=== PATIENT | male | born 1960 | race Caucasian/White ===

== ENCOUNTER 2017-04-29 17:46 | Inpatient (IN) | payer OTHER ==
[2017-04-29] MEDS ORDERED: Pantoprazole 40 MG Vial IVPUSH ONE (18:12)
[2017-04-29] MEDS ORDERED: Sodium Chloride 0.9% 1,000 ML IV SCH (18:15)
[2017-04-29] MEDS ORDERED: Sodium Chloride 0.9% 10 ML Syringe FLUSH PRN (18:18)
--- NOTE | 2017-04-29 18:23 | EDM.PDOC ---
ED HPI GENERAL MEDICAL PROBLEM - General Chief Complaint: Gastrointestinal Problem Stated Complaint: [facility] Time Seen by Provider: 04/29/17 17:58 Source of Information: Reports: Patient, Family, RN Notes Reviewed History Limitations: Reports: No Limitations - History of Present Illness INITIAL COMMENTS - FREE TEXT/NARRATIVE: 56-year-old gentleman presents emergency department day complaint of bright red blood per rectum, he states he never had this before event started today he's had 3 bouts with increasing severity of large amounts of bright red blood per rectum, he has felt lightheaded and dizzy does have a history of diverticular disease with diverticulitis, does have a history of prostate cancer with abdominal surgery robotic prostatectomy also history of diabetes mellitus type 2 denies Pain Score (Numeric/FACES): 0 - Related Data Allergies Allergy/AdvReac Type Severity Reaction Status Date / Time bacitracin Allergy Rash Verified 04/29/17 17:50 [From Neosporin ([id number])] neomycin Allergy Rash Verified 04/29/17 17:50 [From Neosporin ([id number])] polymyxin B Allergy Rash Verified 04/29/17 17:50 [From Neosporin ([id number])] Home Meds: Home Meds Albuterol Sulfate [Proair Respiclick] 90 mcg IH ASDIRECTED 04/29/17 [History] Aspirin 325 mg PO DAILY 04/29/17 [History] Citalopram [Celexa] 20 mg PO DAILY 04/29/17 [History] Colesevelam [Welchol] 3 tab PO DAILY 04/29/17 [History] Cyclobenzaprine [Flexeril] 10 mg PO TID PRN 04/29/17 [History] Fish Oil/[place]-3 Fatty Acids [Fish Oil] 1 tab PO DAILY 04/29/17 [History] Fluticasone Propionate [Flonase] 16 gm NS ASDIRECTED PRN 04/29/17 [History] Hydrochlorothiazide 50 mg PO DAILY 04/29/17 [History] Insulin Glarg,Human.Rec.Analog [LantUS Solostar] 50 unit SUBCUT DAILY 04/29/17 [ History] Liraglutide [Victoza] 1.8 mg SUBCUT DAILY 04/29/17 [History] Losartan [Cozaar] 100 mg PO DAILY 04/29/17 [History] Sildenafil Citrate [Sildenafil] 100 mg PO ASDIRECTED PRN 04/29/17 [History] Simvastatin [Zocor] 40 mg PO BEDTIME 04/29/17 [History] Zolpidem Tartrate [Ambien] 5 mg PO DAILY 04/29/17 [History] metFORMIN [Glucophage] 1,000 mg PO BIDMEALS 04/29/17 [History] Past Medical History Cardiovascular History: Reports: High Cholesterol Respiratory History: Reports: Asthma Musculoskeletal History: Reports: Back Pain, Chronic, Osteoarthritis Psychiatric History: Reports: Anxiety Endocrine/Metabolic History: Reports: Diabetes, Type II Oncologic (Cancer) History: Reports: Prostate - Past Surgical History Male Surgical History: Reports: Prostatectomy Social & Family History - Tobacco Use Smoking Status *Q: Never Smoker Second Hand Smoke Exposure: No - Recreational Drug Use Recreational Drug Use: No ED ROS GENERAL - Review of Systems Review Of Systems: See Below Constitutional: Reports: Weakness. Denies: Fever, Chills HEENT: Reports: No Symptoms Respiratory: Reports: No Symptoms Cardiovascular: Reports: No Symptoms GI/Abdominal: Reports: Bloody Stool. Denies: Abdominal Pain, Nausea, Vomiting : Reports: No Symptoms Musculoskeletal: Reports: No Symptoms Skin: Reports: No Symptoms Neurological: Reports: No Symptoms ED EXAM, GI/ABD - Physical Exam Exam: See Below Text/Narrative:: General: Male, not in any distress, alert and oriented x3 HEENT: head is atraumatic normocephalic, eyes pupils equal round reactive to light, sclera clear no conjunctivitis appreciated. Ears tympanic membranes clear and musa landmarks and light reflex are present bilaterally canals are clear. Nose no septal deviation, nares are clear, no blood present. Mouth mucosa is moist and pink no erythema or exudate noted in soft palate, tongue is midline uvula is midline, dentition is intact. Neck: Supple no thyromegaly no tracheal deviation. Nodes: Cervical nodes subclavicular nodes nontender no palpable lymphadenopathy noted. Lungs: clear to auscultation bilaterally with symmetrical respirations, no adventitious noise appreciated. CV: Regular rate and rhythm S1 and S2 appreciated no murmurs rubs or gallops noted. Abdomen: Soft, nontender, no palpable masses or organomegaly appreciated, no distention no guarding bowel sounds are present, , rectal exam reveals bright red blood per rectum. Neuro: Cranial nerves II through XII grossly intact Skin: Warm and dry, intact Extremities: No lower extremity edema appreciated, pedal pulse is +2. Course - Vital Signs Last Recorded V/S: Last Vital Signs Temp 98.8 F 04/29/17 17:50 Pulse 81 04/29/17 19:20 Resp 16 04/29/17 19:20 BP 128/79 04/29/17 19:20 Pulse Ox 95 04/29/17 19:20 - Orders/Labs/Meds Orders: Active Orders 24 hr Category Date Time Status EKG Documentation Completion [RC] ASDIRECTED Care 04/29/17 18:21 Active Peripheral IV Care [RC] . DIRECTED Care 04/29/17 18:13 Active Peripheral IV Care [RC] . DIRECTED Care 04/29/17 18:18 Active INR,PT,PROTHROMBIN TIME [COAG] Urgent Lab 04/29/17 18:12 Ordered RED BLOOD CELLS LP [BBK] Routine Lab 04/29/17 19:03 Received TYPE AND SCREEN [BBK] Routine Lab 04/29/17 19:03 Received Insulin Aspart [NovoLOG] Med 04/29/17 19:50 Stat 10 unit SUBCUT NOW STA Sodium Chloride 0.9% [Normal Saline] 1,000 ml Med 04/29/17 18:15 Active IV .BOLUS Sodium Chloride 0.9% [Saline Flush] Med 04/29/17 18:12 Active 10 ml FLUSH ASDIRECTED PRN Sodium Chloride 0.9% [Saline Flush] Med 04/29/17 18:18 Active 10 ml FLUSH ASDIRECTED PRN Peripheral IV Insertion Adult [OM.PC] Urgent Oth 04/29/17 18:12 Ordered Peripheral IV Insertion Adult [OM.PC] Urgent Oth 04/29/17 18:18 Ordered Transfuse Red Blood Cells [COMM] Stat Oth 04/29/17 18:14 Ordered EKG 12 Lead [EK] Routine Ther 04/29/17 18:20 Ordered Medication Orders Sodium Chloride (Normal Saline) 1,000 mls @ 1,000 mls/hr IV .BOLUS BRYANT Last Admin: 04/29/17 18:46 Dose: 1,000 mls/hr Insulin Aspart (Novolog) 10 unit SUBCUT NOW STA Stop: 04/29/17 19:51 Sodium Chloride (Saline Flush) 10 ml FLUSH ASDIRECTED PRN PRN Reason: Keep Vein Open Last Admin: 04/29/17 18:46 Dose: 10 ml Admin: 04/29/17 18:45 Dose: 10 ml Sodium Chloride (Saline Flush) 10 ml FLUSH ASDIRECTED PRN PRN Reason: Keep Vein Open Last Admin: 04/29/17 19:21 Dose: 10 ml Labs: Laboratory Tests 04/29/17 04/29/17 04/29/17 Range/Units 18:12 18:12 18:20 WBC 10.0 (4.5-11.0) K/uL RBC 3.57 L (4.30-5.90) M/uL Hgb 11.4 L (12.0-15.0) g/dL Hct 33.3 L (40.0-54.0) % MCV 93 (80-98) fL MCH 32 H (27-31) pg MCHC 34 (32-36) % Plt Count 197 (150-400) K/uL Neut % (Auto) 69 H (36-66) % Lymph % (Auto) 20 L (24-44) % [place]oup % (Auto) 9 H (2-6) % Eos % (Auto) 2 (2-4) % Baso % (Auto) 1 (0-1) % Sodium 135 L (140-148) mmol/L Potassium 4.1 (3.6-5.2) mmol/L Chloride 100 (100-108) mmol/L Carbon Dioxide 25 (21-32) mmol/L Anion Gap 14.1 H (5.0-14.0) mmol/L BUN 22 H (7-18) mg/dL Creatinine 1.0 (0.8-1.3) mg/dL Est Cr Clr Drug Dosing 76.21 mL/min Estimated GFR (MDRD) > 60 (>60) Glucose 357 H (74-106) mg/dL Lactic Acid 2.4 H (0.4-2.0) mmol/L Calcium 8.1 L (8.5-10.1) mg/dL Total Bilirubin 0.4 (0.2-1.0) mg/dL AST 19 (15-37) U/L ALT 33 (12-78) U/L Alkaline Phosphatase 72 (46-116) U/L Total Protein 6.8 (6.4-8.2) g/dL Albumin 3.1 L (3.4-5.0) g/dL Globulin 3.7 H (2.3-3.5) g/dL Albumin/Globulin Ratio 0.8 L (1.2-2.2) Meds: Medications Generic Name Dose Route Start Last Admin Trade Name Gersonq PRN Reason Stop Dose Admin Sodium Chloride 1,000 mls @ 1,000 mls/hr 04/29/17 18:15 04/29/17 18:46 Normal Saline IV 1,000 mls/hr .BOLUS BRYANT Administration Insulin Aspart 10 unit 04/29/17 19:50 Novolog SUBCUT 04/29/17 19:51 NOW STA Sodium Chloride 10 ml 04/29/17 18:12 04/29/17 18:46 Saline Flush FLUSH 10 ml ASDIRECTED PRN Administration Keep Vein Open Sodium Chloride 10 ml 04/29/17 18:18 04/29/17 19:21 Saline Flush FLUSH 10 ml ASDIRECTED PRN Administration Keep Vein Open Discontinued Medications Generic Name Dose Route Start Last Admin Trade Name Gersonq PRN Reason Stop Dose Admin Pantoprazole Sodium 40 mg 04/29/17 18:12 04/29/17 18:45 Protonix Iv IVPUSH 04/29/17 18:13 40 mg ONETIME ONE Administration Departure - Departure Time of Disposition: 19:52 Disposition: Admitted As Inpatient 68 Condition: Good Clinical Impression: GI bleed Qualifiers: GI bleed type/associated pathology: unspecified gastrointestinal hemorrhage type Qualified Code(s): K92.2 - Gastrointestinal hemorrhage, unspecified - Discharge Information Referrals: PCP,None [Primary Care Provider] - Forms: ED Department Discharge - My Orders Last 24 Hours: My Active Orders 04/29/17 18:12 INR,PT,PROTHROMBIN TIME [COAG] Urgent Sodium Chloride 0.9% [Saline Flush] 10 ml FLUSH ASDIRECTED PRN Peripheral IV Insertion Adult [OM.PC] Urgent 04/29/17 18:13 Peripheral IV Care [RC] . DIRECTED 04/29/17 18:14 Transfuse Red Blood Cells [COMM] Stat 04/29/17 18:15 Sodium Chloride 0.9% [Normal Saline] 1,000 ml IV .BOLUS 04/29/17 18:18 Peripheral IV Care [RC] . DIRECTED Sodium Chloride 0.9% [Saline Flush] 10 ml FLUSH ASDIRECTED PRN Peripheral IV Insertion Adult [OM.PC] Urgent 04/29/17 18:20 EKG 12 Lead [EK] Routine 04/29/17 18:21 EKG Documentation Completion [RC] ASDIRECTED 04/29/17 19:03 RED BLOOD CELLS LP [BBK] Routine TYPE AND SCREEN [BBK] Routine 04/29/17 19:50 Insulin Aspart [NovoLOG] 10 unit SUBCUT NOW STA - Assessment/Plan Last 24 Hours: My Active Orders 04/29/17 18:12 INR,PT,PROTHROMBIN TIME [COAG] Urgent Sodium Chloride 0.9% [Saline Flush] 10 ml FLUSH ASDIRECTED PRN Peripheral IV Insertion Adult [OM.PC] Urgent 04/29/17 18:13 Peripheral IV Care [RC] . DIRECTED 04/29/17 18:14 Transfuse Red Blood Cells [COMM] Stat 04/29/17 18:15 Sodium Chloride 0.9% [Normal Saline] 1,000 ml IV .BOLUS 04/29/17 18:18 Peripheral IV Care [RC] . DIRECTED Sodium Chloride 0.9% [Saline Flush] 10 ml FLUSH ASDIRECTED PRN Peripheral IV Insertion Adult [OM.PC] Urgent 04/29/17 18:20 EKG 12 Lead [EK] Routine 04/29/17 18:21 EKG Documentation Completion [RC] ASDIRECTED 04/29/17 19:03 RED BLOOD CELLS LP [BBK] Routine TYPE AND SCREEN [BBK] Routine 04/29/17 19:50 Insulin Aspart [NovoLOG] 10 unit SUBCUT NOW STA Plan: Assessment Acuity = acute Site and laterality = lower gastrointestinal bleeding complicated patient with known history of diabetes mellitus type 2, dyslipidemia history of prostate cancer Etiology = unclear etiology Manifestations = lightheadedness Location of injury = Home Lab values = hemoglobin low 11.4 consistent normochromic anemia sodium low at 135 consists a hyponatremia glucose elevated 357 consistent hyperglycemia lactic acid elevated at 2.4 consistent lactic acidosis albumin low at 3.1 consistent hypoalbuminemia Plan Discussed case with hospitalist on-call they agreed to come and evaluate the patient emergency department for admission, 40 mg Protonix IV has been provided 2 units of blood are on hold Patient was in agreement with the plan all questions were answered, This note was dictated using YesVideo voice recognition software please call with any questions.
[2017-04-29] MEDS: Sodium Chloride 0.9% 10 ML Syringe FLUSH PRN ×2 (18:45→18:46)
[2017-04-29] MEDS ORDERED: Acetaminophen 325 MG Tab PO PRN (21:22)
[2017-04-29] MEDS ORDERED: LORazepam 2 MG/ML MDV IV PRN (21:22)
[2017-04-29] MEDS ORDERED: oxyCODONE 5 MG Tab PO PRN (21:22)
[2017-04-29] MEDS ORDERED: Cyclobenzaprine 10 MG Tab PO PRN (21:22)
[2017-04-29] MEDS ORDERED: Ondansetron 4 MG/2 ML SDV IV PRN (21:22)
[2017-04-29] MEDS ORDERED: Ondansetron 4 MG Tab.DIS PO PRN (21:22)
[2017-04-29] MEDS ORDERED: Morphine 2 MG/ML Syringe IVPUSH PRN (21:22)
[2017-04-29] MEDS ORDERED: Albuterol 0.083% 2.5 MG/3 ML Neb Soln NEB PRN (21:22)
[2017-04-29] MEDS ORDERED: Zolpidem 5 MG Tab PO SCH (21:22)
--- NOTE | 2017-04-29 21:25 | PCM.HP ---
H&P History of Present Illness - General Date of Service: 04/29/17 Admit Problem/Dx: Admission Diagnosis/Problem Admission Diagnosis/Problem Gastrointestinal hemorrhage Source of Information: Patient, Provider, RN History Limitations: Reports: No Limitations - History of Present Illness Initial Comments - Free Text/Narative: - History of Present Illness: 56-year-old gentleman presents emergency department day complaint of bright red blood per rectum, he states he never had this before event started today he's had 3 bouts with increasing severity of large amounts of bright red blood per rectum, he has felt lightheaded and dizzy does have a history of diverticular disease with diverticulitis, does have a history of prostate cancer with abdominal surgery robotic prostatectomy also history of diabetes mellitus type 2 Onset of Symptoms: Reports: Sudden Duration of Symptoms: Reports: Hour(s): Location: Reports: Other (rectal bleed) Quality: Reports: Other Severity: Severe Improves with: Reports: None Worsens with: Reports: None Associated Symptoms: Reports: Fever/Chills (feeling chilled), Other (dizziness) denies Pain Score (Numeric/FACES): 0 - Related Data Allergies/Adverse Reactions: Allergies Allergy/AdvReac Type Severity Reaction Status Date / Time bacitracin Allergy Rash Verified 04/29/17 17:50 [From Neosporin ([id number])] neomycin Allergy Rash Verified 04/29/17 17:50 [From Neosporin ([id number])] polymyxin B Allergy Rash Verified 04/29/17 17:50 [From Neosporin ([id number])] Home Medications: Home Meds Albuterol Sulfate [Proair Respiclick] 90 mcg IH ASDIRECTED 04/29/17 [History] Aspirin 325 mg PO DAILY 04/29/17 [History] Citalopram [Celexa] 20 mg PO DAILY 04/29/17 [History] Colesevelam [Welchol] 3 tab PO DAILY 04/29/17 [History] Cyclobenzaprine [Flexeril] 10 mg PO TID PRN 04/29/17 [History] Fish Oil/[place]-3 Fatty Acids [Fish Oil] 1 tab PO DAILY 04/29/17 [History] Fluticasone Propionate [Flonase] 16 gm NS ASDIRECTED PRN 04/29/17 [History] Hydrochlorothiazide 50 mg PO DAILY 04/29/17 [History] Insulin Glarg,Human.Rec.Analog [LantUS Solostar] 50 unit SUBCUT DAILY 04/29/17 [ History] Liraglutide [Victoza] 1.8 mg SUBCUT DAILY 04/29/17 [History] Losartan [Cozaar] 100 mg PO DAILY 04/29/17 [History] Sildenafil Citrate [Sildenafil] 100 mg PO ASDIRECTED PRN 04/29/17 [History] Simvastatin [Zocor] 40 mg PO BEDTIME 04/29/17 [History] Zolpidem Tartrate [Ambien] 5 mg PO DAILY 04/29/17 [History] metFORMIN [Glucophage] 1,000 mg PO BIDMEALS 04/29/17 [History] Past Medical History Cardiovascular History: Reports: High Cholesterol Respiratory History: Reports: Asthma Musculoskeletal History: Reports: Back Pain, Chronic, Osteoarthritis Psychiatric History: Reports: Anxiety Endocrine/Metabolic History: Reports: Diabetes, Type II Oncologic (Cancer) History: Reports: Prostate - Past Surgical History Male Surgical History: Reports: Prostatectomy Social & Family History - Tobacco Use Smoking Status *Q: Never Smoker Second Hand Smoke Exposure: No - Recreational Drug Use Recreational Drug Use: No - Living Situation & Occupation Living situation: Reports: Occupation: Employed (lives with in [place], [place].) H&P Review of Systems - Review of Systems: Review Of Systems: See Below General: Reports: Chills, Other (dizziness) HEENT: Reports: No Symptoms Pulmonary: Reports: No Symptoms Cardiovascular: Reports: Lightheadedness Gastrointestinal: Reports: Bloody Stool Genitourinary: Reports: No Symptoms Musculoskeletal: Reports: No Symptoms Skin: Reports: No Symptoms Psychiatric: Reports: No Symptoms Neurological: Reports: No Symptoms Hematologic/Lymphatic: Reports: No Symptoms Exam - Exam Exam: See Below - Vital Signs Vital Signs: Last Vital Signs Temp 37.1 C 04/29/17 17:50 Pulse 81 04/29/17 19:20 Resp 16 04/29/17 19:20 BP 128/79 04/29/17 19:20 Pulse Ox 95 04/29/17 19:20 Weight: 113.398 kg - Exam General: Alert, Oriented HEENT: PERRLA, Hearing Intact, Mucosa Moist & [place], Nares Patent, Normal Nasal Septum, Posterior Pharynx Clear, Conjunctiva Clear, EOMI, EACs Clear, TMs Clear Neck: Supple, Trachea Midline, 2 Lungs: Clear to Auscultation, Normal Respiratory Effort Cardiovascular: Regular Rate, Regular Rhythm, Normal S1, Normal S2 GI/Abdominal Exam: Normal Bowel Sounds, Soft, Non-Tender, No Organomegaly, No Distention, No Abnormal Bruit, No Mass, Pelvis Stable (Male) Exam: Deferred Rectal (Males) Exam: Deferred Back Exam: Normal Inspection, Full Range of Motion, NT Extremities: Normal Inspection, Normal Range of Motion, Non-Tender, No Pedal Edema, Normal Capillary Refill Peripheral Pulses: 2+: Radial (L), Radial (R) Skin: Warm, Dry, Intact Neurological: Cranial Nerves Intact, Reflexes Equal Bilateral Neuro Extensive - Mental Status: Alert, Oriented x3, Normal Mood/Affect, Normal Cognition Neuro Extensive - Motor, Sensory, Reflexes: Normal Reflexes Psychiatric: Alert, Normal Affect, Normal Mood Physical Exam Comments:: Per ER MD exam; Abdomen: rectal exam reveals bright red blood per rectum. - Patient Data Result Diagrams: 04/30/17 01:01 04/29/17 18:12 *Q Meaningful Use (ADM) - VTE *Q VTE Criteria *Q: - Stroke *Q Stroke Criteria *Q: - AMI *Q AMI Criteria *Q: - Problem List (1) Diabetes type 2, controlled SNOMED Code(s): 14687381 ICD Code: E11.9 - TYPE 2 DIABETES MELLITUS WITHOUT COMPLICATIONS Status: Acute Priority: High Current Visit: Yes Qualifiers: Diabetes mellitus complication status: without complication Diabetes mellitus termite exterminator helper insulin use: without termite exterminator helper use Qualified Code(s): E11.9 - Type 2 diabetes mellitus without complications (2) Hypertension SNOMED Code(s): 22630138 ICD Code: I10 - ESSENTIAL (PRIMARY) HYPERTENSION Status: Acute Priority: High Current Visit: Yes Qualifiers: Hypertension type: essential hypertension Qualified Code(s): I10 - Essential (primary) hypertension (3) History of prostate cancer SNOMED Code(s): 697398747 ICD Code: Z85.46 - PERSONAL HISTORY OF MALIGNANT NEOPLASM OF PROSTATE Status: Acute Priority: Low Current Visit: Yes (4) History of prostatectomy SNOMED Code(s): 806707583, 42641083, 041789328 ICD Code: Z90.79 - ACQUIRED ABSENCE OF OTHER GENITAL ORGAN(S) Status: Acute Priority: Low Current Visit: Yes (5) GI bleed SNOMED Code(s): 27391816 ICD Code: K92.2 - GASTROINTESTINAL HEMORRHAGE, UNSPECIFIED Status: Acute Priority: High Current Visit: Yes Qualifiers: GI bleed type/associated pathology: unspecified gastrointestinal hemorrhage type Qualified Code(s): K92.2 - Gastrointestinal hemorrhage, unspecified Problem List Initiated/Reviewed/Updated: Yes Orders Last 24hrs: Active Orders 24 hr Category Date Time Status Patient Status [ADT] Routine ADT 04/29/17 21:22 Active Head of Bed Elevation [RC] ASDIRECTED Care 04/29/17 21:22 Active Intake and Output [RC] QSHIFT Care 04/29/17 21:22 Active Intake and Output [RC] QSHIFT Care 04/29/17 21:22 Active Notify Provider Consults [RC] ASDIRECTED Care 04/29/17 21:22 Active Notify Provider Vital Signs [RC] ASDIRECTED Care 04/29/17 21:22 Active Oxygen Therapy [RC] PRN Care 04/29/17 21:22 Active RT Aerosol Therapy [RC] ASDIRECTED Care 04/29/17 21:22 Active Up ad [place] [RC] ASDIRECTED Care 04/29/17 21:22 Active VTE/DVT Education [RC] Per Unit Routine Care 04/29/17 21:22 Active Vital Signs [RC] Q4H Care 04/29/17 21:22 Active Consult to Physician [CONS] Routine Cons 04/29/17 21:22 Ordered OT Evaluation and Treatment [CONS] Routine Cons 04/29/17 21:22 Active Nothing per Oral After Midnight Diet [DIET] Diet 04/29/17 Breakfast Active BASIC METABOLIC PANEL,BMP [CHEM] AM Lab 04/30/17 05:11 Ordered CBC WITH AUTO DIFF [HEME] AM Lab 04/30/17 05:11 Ordered GLUCOSE POC LAB TO COLLECT [POC] QIDACANDBED Lab 04/30/17 07:30 Ordered GLUCOSE POC LAB TO COLLECT [POC] QIDACANDBED Lab 04/30/17 11:30 Ordered GLUCOSE POC LAB TO COLLECT [POC] QIDACANDBED Lab 04/30/17 16:30 Ordered GLUCOSE POC LAB TO COLLECT [POC] QIDACANDBED Lab 04/30/17 21:00 Ordered Acetaminophen [Tylenol] Med 04/29/17 21:22 Active 650 mg PO Q4H PRN Albuterol [Proventil Neb Soln] Med 04/29/17 21:22 Active 2.5 mg NEB Q4H PRN Citalopram [Celexa] Med 04/30/17 09:00 Active 20 mg PO DAILY Cyclobenzaprine [Flexeril] Med 04/29/17 21:22 Active 10 mg PO TID PRN Hydrochlorothiazide [Hydrochlorothiazide] Med 04/30/17 09:00 Ordered 50 mg PO DAILY Insulin Aspart [NovoLOG] Med 04/30/17 07:00 Ordered See Protocol SUBCUT QIDACANDBED Insulin Glarg,Human.Rec.Analog [Lantus Solostar] Med 04/30/17 09:00 Ordered 50 unit SUBCUT DAILY LORazepam [Ativan] Med 04/29/17 21:22 Ordered 1 mg IV Q6H PRN Liraglutide [Victoza] Med 04/30/17 09:00 Ordered 1.8 mg SUBCUT DAILY Losartan [Cozaar] Med 04/30/17 09:00 Ordered 100 mg PO DAILY Morphine Med 04/29/17 21:22 Ordered 2 mg IVPUSH Q2H PRN Ondansetron [Zofran ODT] Med 04/29/17 21:22 Ordered 4 mg PO Q6H PRN Ondansetron [Zofran] Med 04/29/17 21:22 Ordered 4 mg IV Q4H PRN Pantoprazole [ProTONIX IV] Med 04/30/17 09:00 Ordered 40 mg IV DAILY Sodium Chloride 0.9% [Normal Saline] 1,000 ml Med 04/29/17 21:22 Ordered IV ASDIRECTED Zolpidem [Ambien] Med 04/29/17 21:22 Ordered 5 mg PO BEDTIME oxyCODONE Med 04/29/17 21:22 Ordered 5 mg PO Q4H PRN Resuscitation Status Routine Resus Stat 04/29/17 20:55 Ordered Medication Orders Acetaminophen (Tylenol) 650 mg PO Q4H PRN PRN Reason: Pain (Mild 1-3)/fever Albuterol (Proventil Neb Soln) 2.5 mg NEB Q4H PRN PRN Reason: Shortness Of Breath/wheezing Citalopram Hydrobromide (Celexa) 20 mg PO DAILY [facility] Cyclobenzaprine HCl (Flexeril) 10 mg PO TID PRN PRN Reason: Muscle Spasm Sodium Chloride (Normal Saline) 1,000 mls @ 125 mls/hr IV ASDIRECTED [facility] Insulin Aspart (Novolog) 0 unit SUBCUT QIDACANDBED BRYANT PRN Reason: Protocol Liraglutide (Victoza) 1.8 mg SUBCUT DAILY [facility] Lorazepam (Ativan) 1 mg IV Q6H PRN PRN Reason: Nausea/Vomiting Morphine Sulfate (Morphine) 2 mg IVPUSH Q2H PRN PRN Reason: Pain (severe 7-10) Non-Formulary Medication (Hydrochlorothiazide [Hydrochlorothiazide]) 50 mg PO DAILY [facility] Non-Formulary Medication (Insulin Glarg,Human.Rec.Analog [Lantus Solostar]) 50 unit SUBCUT DAILY [facility] Non-Formulary Medication (Losartan [Cozaar]) 100 mg PO DAILY [facility] Ondansetron HCl (Zofran Odt) 4 mg PO Q6H PRN PRN Reason: Nausea able to take PO Ondansetron HCl (Zofran) 4 mg IV Q4H PRN PRN Reason: Nausea/Vomiting Oxycodone HCl (Oxycodone) 5 mg PO Q4H PRN PRN Reason: Pain (moderate 4-6) Pantoprazole Sodium (Protonix Iv) 40 mg IV DAILY [facility] Sodium Chloride (Saline Flush) 10 ml FLUSH ASDIRECTED PRN PRN Reason: Keep Vein Open Last Admin: 04/29/17 18:46 Dose: 10 ml Admin: 04/29/17 18:45 Dose: 10 ml Sodium Chloride (Saline Flush) 10 ml FLUSH ASDIRECTED PRN PRN Reason: Keep Vein Open Last Admin: 04/29/17 19:21 Dose: 10 ml Zolpidem Tartrate (Ambien) 5 mg PO BEDTIME [facility] Assessment/Plan Comment:: ASSESSMENT AND PLAN 56-year-old gentleman presents emergency department day complaint of bright red blood per rectum, he states he never had this before event started today he's had 3 bouts with increasing severity of large amounts of bright red blood per rectum, he has felt lightheaded and dizzy does have a history of diverticular disease with diverticulitis, does have a history of prostate cancer with abdominal surgery robotic prostatectomy also history of diabetes mellitus type Plan Lower GI Bleed -consult with Surgeon; will do colonscopy in am -Colonoscopy prep -keep NPO -IV fluids -monitor for signs of further rectal bleed -2 units of blood on hold -And a.m. labs: CBC, BMP Diabetes Type 2 -blood glucose monitor before meals and at bedtimes -medium dose sliding scale coverage -Insulin Levemir units subcut in am -Insulin Novolog unit before meals -diet; consistent carb when able to tolerate diet Hypertension -meds on hold til after surgery Hx of Prostate cancer -hx of prostate removal Maintenance issues -Orders home meds: oral meds on hold til after surgery -Nutrition: consistent carb diet -Judd catheter not indicated at this time -DVT: SCD -PPI; IV Protonix 40mg daily -consult OT for discharge planning CODE STATUS: FULL CODE Admission status: Admit to [address] [place] [address] Admission justification. This patient will be admitted for inpatient services and is medically appropriate meeting medical necessity for inpatient admission as outlined in my documentation. I reasonably expect the patient will require inpatient services that span. Time over 2 midnights. I reasonably expect this patient to be discharged or transferred within 96 hours after admission to the [facility]. Disposition; home Primary care provider: none listed Hospitalist: Dr. Pan
[2017-04-29] MEDS ORDERED: Insulin Detemir 100 Units/ML 3 ML Pen SUBCUT SCH (21:30)
[2017-04-29] MEDS ORDERED: Polyethylene Glycol 3350 Powder 238 GM Bot PO ONE (21:45)
[2017-04-29] MEDS ORDERED: Bisacodyl 5 MG Tab PO ONE (21:46)
[2017-04-29] MEDS: Sodium Chloride 0.9% 1,000 ML IV SCH (21:59)
[2017-04-30] MEDS: Sodium Chloride 0.9% 1,000 ML IV SCH (05:33)
[2017-04-30] MEDS ORDERED: Insulin Detemir 100 Units/ML 3 ML Pen SUBCUT SCH ×2 (07:24→09:00)
[2017-04-30] MEDS ORDERED: Losartan 50 MG Tab PO SCH (09:00)
[2017-04-30] MEDS ORDERED: Pantoprazole 40 MG Vial IV SCH (09:00)
[2017-04-30] MEDS ORDERED: Citalopram 20 MG Tab PO SCH (09:00)
[2017-04-30] MEDS ORDERED: Hydrochlorothiazide 25 MG Tab PO SCH (09:00)
[2017-04-30] MEDS ORDERED: Liraglutide (rDNA Origin) 0.6 MG/0.1 ML 3 ML Pen SUBCUT SCH (09:00)
[2017-04-30] MEDS: Insulin Aspart 100 Units/ML 3 ML Pen SUBCUT SCH ×2 (09:19→11:58)
[2017-04-30] MEDS ORDERED: Midazolam 1 MG/ML 2 ML SDV ONE (09:40)
[2017-04-30] MEDS ORDERED: Propofol 200 MG/20 ML SDV ONE (09:40)
[2017-04-30] MEDS ORDERED: fentaNYL 100 MCG/2 ML SDV ONE (09:40)
--- NOTE | 2017-04-30 11:52 | PCM.PN ---
- General Info Date of Service: 04/30/17 Functional Status: Reports: Pain Controlled - Review of Systems General: Reports: Weakness Gastrointestinal: Denies: Abdominal Pain Systems Review Comment:: No acute events overnight. Hemoglobin has continued to trend down but he has not had additional hematochezia. No significant abdominal pain and no fevers. Sugars moderately elevated. Colonoscopy this morning revealed some mild diverticulosis but no source of bleeding. - Patient Data Vitals - Most Recent: Last Vital Signs Temp 37.0 C 04/30/17 11:45 Pulse 83 04/30/17 11:45 Resp 18 04/30/17 11:45 BP 118/67 04/30/17 11:45 Pulse Ox 96 04/30/17 11:45 Weight - Most Recent: 113.398 kg I&O - Last 24 Hours: Intake & Output 04/29/17 04/30/17 04/30/17 22:59 06:59 14:59 Intake Total 2850 Balance 2850 Lab Results Last 24 Hours: Laboratory Results - last 24 hr 04/30/17 04/30/17 04/30/17 Range/Units 01:01 05:51 05:51 WBC 8.2 (4.5-11.0) K/uL RBC 2.93 L (4.30-5.90) M/uL Hgb 10.1 L 9.3 L (12.0-15.0) g/dL Hct 27.5 L (40.0-54.0) % MCV 94 (80-98) fL MCH 32 H (27-31) pg MCHC 34 (32-36) % Plt Count 161 (150-400) K/uL Neut % (Auto) 52 (36-66) % Lymph % (Auto) 34 (24-44) % [place] % (Auto) 10 H (2-6) % Eos % (Auto) 4 (2-4) % Baso % (Auto) 1 (0-1) % Sodium 138 L (140-148) mmol/L Potassium 3.4 L (3.6-5.2) mmol/L Chloride 103 (100-108) mmol/L Carbon Dioxide 28 (21-32) mmol/L Anion Gap 10.4 (5.0-14.0) mmol/L BUN 16 (7-18) mg/dL Creatinine 0.8 (0.8-1.3) mg/dL Est Cr Clr Drug Dosing 95.26 mL/min Estimated GFR (MDRD) > 60 (>60) Glucose 214 H (74-106) mg/dL Calcium 7.3 L (8.5-10.1) mg/dL Med Orders - Current: Current Medications Acetaminophen (Tylenol) 650 mg PO Q4H PRN PRN Reason: Pain (Mild 1-3)/fever Albuterol (Proventil Neb Soln) 2.5 mg NEB Q4H PRN PRN Reason: Shortness Of Breath/wheezing Citalopram Hydrobromide (Celexa) 20 mg PO DAILY [facility] Cyclobenzaprine HCl (Flexeril) 10 mg PO TID PRN PRN Reason: Muscle Spasm Hydrochlorothiazide (Hydrochlorothiazide) 50 mg PO DAILY [facility] Insulin Aspart (Novolog) 0 unit SUBCUT QIDACANDBED [facility] PRN Reason: Protocol Last Admin: 04/30/17 09:19 Dose: Not Given Insulin Detemir (Levemir) 50 unit SUBCUT DAILY [facility] Last Admin: 04/30/17 09:20 Dose: Not Given Liraglutide (Victoza) 1.8 mg SUBCUT DAILY [facility] Lorazepam (Ativan) 1 mg IV Q6H PRN PRN Reason: Nausea/Vomiting Losartan Potassium (Cozaar) 100 mg PO DAILY [facility] Morphine Sulfate (Morphine) 2 mg IVPUSH Q2H PRN PRN Reason: Pain (severe 7-10) Ondansetron HCl (Zofran Odt) 4 mg PO Q6H PRN PRN Reason: Nausea able to take PO Ondansetron HCl (Zofran) 4 mg IV Q4H PRN PRN Reason: Nausea/Vomiting Oxycodone HCl (Oxycodone) 5 mg PO Q4H PRN PRN Reason: Pain (moderate 4-6) Pantoprazole Sodium (Protonix Iv) 40 mg IV DAILY [facility] Last Admin: 04/30/17 09:21 Dose: 40 mg Zolpidem Tartrate (Ambien) 5 mg PO BEDTIME [facility] Last Admin: 04/29/17 23:29 Dose: 5 mg Discontinued Medications Bisacodyl (Dulcolax) 10 mg PO ONETIME ONE Stop: 04/29/17 21:47 Last Admin: 04/29/17 23:29 Dose: 10 mg Fentanyl (Sublimaze) Confirm Administered Dose 100 mcg .ROUTE .STK-MED ONE Stop: 04/30/17 09:41 Sodium Chloride (Normal Saline) 1,000 mls @ 1,000 mls/hr IV .BOLUS [facility] Last Admin: 04/29/17 18:46 Dose: 1,000 mls/hr Sodium Chloride (Normal Saline) 1,000 mls @ 125 mls/hr IV ASDIRECTED [facility] Last Admin: 04/30/17 05:33 Dose: 125 mls/hr Insulin Aspart (Novolog) 10 unit SUBCUT NOW STA Stop: 04/29/17 19:51 Last Admin: 04/29/17 20:19 Dose: 10 units Insulin Detemir (Levemir) 50 unit SUBCUT DAILY [facility] Last Admin: 04/29/17 23:29 Dose: 50 units Midazolam HCl (Versed 1 Mg/Ml) Confirm Administered Dose 2 mg .ROUTE .STK-MED ONE Stop: 04/30/17 09:41 Pantoprazole Sodium (Protonix Iv) 40 mg IVPUSH ONETIME ONE Stop: 04/29/17 18:13 Last Admin: 04/29/17 18:45 Dose: 40 mg Polyethylene Glycol (Miralax) 238 gm PO ONETIME ONE Stop: 04/29/17 21:46 Last Admin: 04/29/17 23:21 Dose: 238 gm Propofol (Diprivan 20 Ml) Confirm Administered Dose 200 mg .ROUTE .STK-MED ONE Stop: 04/30/17 09:41 Sodium Chloride (Saline Flush) 10 ml FLUSH ASDIRECTED PRN PRN Reason: Keep Vein Open Last Admin: 04/29/17 18:46 Dose: 10 ml Sodium Chloride (Saline Flush) 10 ml FLUSH ASDIRECTED PRN PRN Reason: Keep Vein Open Last Admin: 04/29/17 19:21 Dose: 10 ml - Exam Quality Assessment: No: Supplemental Oxygen General: Alert, Oriented, Cooperative, No Acute Distress Neck: Supple Lungs: Normal Respiratory Effort GI/Abdominal Exam: Soft, No Distention Skin: Warm, Dry Psy/Mental Status: Alert, Normal Affect - Problem List Review Problem List Initiated/Reviewed/Updated: Yes - My Orders Last 24 Hours: My Active Orders 04/30/17 11:32 SCD [Sequential Compression Device] [OM.PC] Routine 04/30/17 11:50 Potassium Chloride [Klor-Con M20] 40 meq PO ONETIME ONE Convert IV to Saline Lock [OM.PC] Routine 04/30/17 17:00 HGB [HEMOGLOBIN] [HEME] Timed 05/01/17 05:00 CBC W/O DIFF,HEMOGRAM [HEME] Timed (1) - Plan Plan:: ASSESSMENT AND PLAN Probable Lower GI hemorrhage with acute blood loss anemia - hemoglobin has drifted down to just above 9 this morning. No recurrence of bleeding since hospital admission. Colonoscopy revealed diverticulosis and diverticular bleed most likely. -Advance diet -Saline lock IV fluids -monitor for signs of further rectal bleed -2 units of blood on hold -Repeat hemoglobin this evening and in the morning Diabetes Type 2 - moderate elevation of blood sugars. -blood glucose monitor before meals and at bedtimes -medium dose sliding scale coverage -Continue daily Levemir -Insulin Novolog unit before meals -diet; consistent carb when able to tolerate diet Hypertension -Restart home medications Hx of Prostate cancer -hx of prostate removal Maintenance issues -Orders home meds: oral meds on hold til after surgery -Nutrition: consistent carb diet -Judd catheter not indicated at this time -DVT: SCD -PPI; IV Protonix 40mg daily Disposition; anticipate discharge to home tomorrow if stable overnight Juan Alberto Avalos M.D.
[2017-04-30] MEDS ORDERED: Potassium Chloride 20 MEQ Tab.ER PO ONE (12:30)
[2017-04-30 13:01] VITALS: BP 122/64
--- NOTE | 2017-04-30 15:01 | PCM.DCSUM1 ---
Discharge Summary - Hospital Course Brief History: 56-year-old male with history of insulin-dependent diabetes who presented with hematochezia and was admitted for workup and management of a presumed lower gastrointestinal hemorrhage. - Discharge Data Discharge Date: 04/30/17 Discharge Disposition: Home, Self-Care 01 Condition: Good - Discharge Diagnosis/Problem(s) (1) Acute lower gastrointestinal hemorrhage SNOMED Code(s): 99937915 ICD Code: K92.2 - GASTROINTESTINAL HEMORRHAGE, UNSPECIFIED Status: Acute Current Visit: Yes (2) Acute blood loss anemia SNOMED Code(s): 845372448 ICD Code: D62 - ACUTE POSTHEMORRHAGIC ANEMIA Status: Acute Current Visit : Yes (3) Diabetes type 2, controlled SNOMED Code(s): 67745793 ICD Code: E11.9 - TYPE 2 DIABETES MELLITUS WITHOUT COMPLICATIONS Status: Chronic Priority: High Current Visit: No Qualifiers: Diabetes mellitus complication status: without complication Diabetes mellitus group home insulin use: without terminal press operator use Qualified Code(s): E11.9 - Type 2 diabetes mellitus without complications - Patient Summary/Data Consults: Consultations 04/29/17 21:22 Consult to Physician [CONS] Routine Consulting Provider: Deon Xiong Call Completed to Consulting Physician: Yes Reason for Consult: lower GI bleed Person Notified: Dr. Xiong Date Notified: 04/29/17 Time Notified: 20:25 Special Instructions: colonscopy in am order colonscopy prep tonight. OT Evaluation and Treatment [CONS] Routine Please Evaluate and Treat. OT Reason for Consult: Discharge Planning This query below is only for informational purposes and is not editable. Hospital Course: Saul presented to the emergency room with multiple episodes of hematochezia. Workup in the emergency room revealed mild anemia and there was concern for a lower gastrointestinal hemorrhage. He was admitted to the hospital for further management and monitoring. He received IV fluids from the time of admission through the morning after. Dr. Xiong was consulted to consider performing a colonoscopy for further evaluation. He was agreeable to the procedure and the patient was prepped the evening of presentation. He has not had additional episodes of bleeding since admission. His hemoglobin level did drop to 9.3 the morning after admission but has remained stable since then. The colonoscopy revealed some diverticulosis and one polyp but no evidence for bleeding or definite source of bleeding. He tolerated this procedure well. Following the procedure the patient tolerated a regular diet and feels well. He does not have presyncopal symptoms at this time. He is interested in going home. I believe he is safe at this point with a stable hemoglobin and no recurrence of bleeding. Likely source of bleeding was a ruptured blood vessel in one of the diverticuli. He will follow-up if he has additional episodes of bleeding or return of symptoms to suggest presyncope. - Patient Instructions Diet: Regular Diet as Tolerated Activity: As Tolerated Driving: May Drive Today Showering/Bathing: May Shower Notify Provider of: Fever, Increased Pain, Nausea and/or Vomiting Other/Special Instructions: 1. You were in the hospital for management of a lower gastrointestinal bleed thought secondary to a ruptured blood vessel in a diverticulum. The colonoscopy did not show a definite source of bleeding. I would recommend that you avoid nonsteroidal anti-inflammatory medications such as ibuprofen to help reduce the risk of additional bleeding. If you need additional help with pain control for your back acetaminophen is a safe alternative that will not affect bleeding or clotting. 2. Please seek medical attention if you have recurrence of your bleeding or if you have the sensation that you will pass out or if you do have an episode of passing out. - Discharge Plan Home Medications: Home Meds Albuterol Sulfate [Proair Respiclick] 90 mcg IH ASDIRECTED 04/29/17 [History] Aspirin 325 mg PO DAILY 04/29/17 [History] Citalopram [Citalopram HBr] 20 mg PO DAILY 04/29/17 [History] Colesevelam [Welchol] 3 tab PO DAILY 04/29/17 [History] Cyclobenzaprine [Flexeril] 10 mg PO TID PRN 04/29/17 [History] Fish Oil/[place]-3 Fatty Acids [Fish Oil] 1 tab PO DAILY 04/29/17 [History] Fluticasone Propionate [Flonase] 16 gm NS ASDIRECTED PRN 04/29/17 [History] Hydrochlorothiazide 50 mg PO DAILY 04/29/17 [History] Insulin Glarg,Human.Rec.Analog [Lantus Solostar] 50 unit SUBCUT DAILY 04/29/17 [ History] Liraglutide [Victoza] 1.8 mg SUBCUT DAILY 04/29/17 [History] Losartan [Cozaar] 100 mg PO DAILY 04/29/17 [History] Sildenafil Citrate [Sildenafil] 100 mg PO ASDIRECTED PRN 04/29/17 [History] Simvastatin [Zocor] 40 mg PO BEDTIME 04/29/17 [History] Zolpidem Tartrate [Ambien] 5 mg PO DAILY 04/29/17 [History] metFORMIN [Glucophage] 1,000 mg PO BIDMEALS 04/29/17 [History] Patient Handouts: Gastrointestinal Bleeding Referrals: PCP,None [Primary Care Provider] - (follow-up if your symptoms do not continue to get better or they get worse) - Discharge Summary/Plan Comment DC Time >30 min.: No (25) - Patient Data Vitals - Most Recent: Last Vital Signs Temp 36.7 C 04/30/17 13:00 Pulse 78 04/30/17 13:00 Resp 18 04/30/17 13:00 BP 122/64 04/30/17 13:00 Pulse Ox 97 04/30/17 13:00 Weight - Most Recent: 113.398 kg I&O - Last 24 hours: Intake & Output 04/29/17 04/30/17 04/30/17 22:59 06:59 14:59 Intake Total 2850 800 Balance 2850 800 Lab Results - Last 24 hrs: Laboratory Results - last 24 hr 04/30/17 04/30/17 04/30/17 Range/Units 01:01 05:51 05:51 WBC 8.2 (4.5-11.0) K/uL RBC 2.93 L (4.30-5.90) M/uL Hgb 10.1 L 9.3 L (12.0-15.0) g/dL Hct 27.5 L (40.0-54.0) % MCV 94 (80-98) fL MCH 32 H (27-31) pg MCHC 34 (32-36) % Plt Count 161 (150-400) K/uL Neut % (Auto) 52 (36-66) % Lymph % (Auto) 34 (24-44) % [place] % (Auto) 10 H (2-6) % Eos % (Auto) 4 (2-4) % Baso % (Auto) 1 (0-1) % Sodium 138 L (140-148) mmol/L Potassium 3.4 L (3.6-5.2) mmol/L Chloride 103 (100-108) mmol/L Carbon Dioxide 28 (21-32) mmol/L Anion Gap 10.4 (5.0-14.0) mmol/L BUN 16 (7-18) mg/dL Creatinine 0.8 (0.8-1.3) mg/dL Est Cr Clr Drug Dosing 95.26 mL/min Estimated GFR (MDRD) > 60 (>60) Glucose 214 H (74-106) mg/dL Calcium 7.3 L (8.5-10.1) mg/dL 04/30/17 Range/Units 14:38 WBC (4.5-11.0) K/uL RBC (4.30-5.90) M/uL Hgb 9.0 L (12.0-15.0) g/dL Hct (40.0-54.0) % MCV (80-98) fL MCH (27-31) pg MCHC (32-36) % Plt Count (150-400) K/uL Neut % (Auto) (36-66) % Lymph % (Auto) (24-44) % [place] % (Auto) (2-6) % Eos % (Auto) (2-4) % Baso % (Auto) (0-1) % Sodium (140-148) mmol/L Potassium (3.6-5.2) mmol/L Chloride (100-108) mmol/L Carbon Dioxide (21-32) mmol/L Anion Gap (5.0-14.0) mmol/L BUN (7-18) mg/dL Creatinine (0.8-1.3) mg/dL Est Cr Clr Drug Dosing mL/min Estimated GFR (MDRD) (>60) Glucose (74-106) mg/dL Calcium (8.5-10.1) mg/dL Med Orders - Current: Current Medications Acetaminophen (Tylenol) 650 mg PO Q4H PRN PRN Reason: Pain (Mild 1-3)/fever Albuterol (Proventil Neb Soln) 2.5 mg NEB Q4H PRN PRN Reason: Shortness Of Breath/wheezing Citalopram Hydrobromide (Celexa) 20 mg PO DAILY [facility] Last Admin: 04/30/17 11:54 Dose: 20 mg Cyclobenzaprine HCl (Flexeril) 10 mg PO TID PRN PRN Reason: Muscle Spasm Hydrochlorothiazide (Hydrochlorothiazide) 50 mg PO DAILY [facility] Last Admin: 04/30/17 09:00 Dose: Not Given Insulin Aspart (Novolog) 0 unit SUBCUT QIDACANDBED [facility] PRN Reason: Protocol Last Admin: 04/30/17 11:58 Dose: Not Given Insulin Detemir (Levemir) 50 unit SUBCUT DAILY [facility] Last Admin: 04/30/17 09:20 Dose: Not Given Liraglutide (Victoza) 1.8 mg SUBCUT DAILY [facility] Last Admin: 04/30/17 11:54 Dose: 1.8 units Lorazepam (Ativan) 1 mg IV Q6H PRN PRN Reason: Nausea/Vomiting Losartan Potassium (Cozaar) 100 mg PO DAILY [facility] Last Admin: 04/30/17 09:00 Dose: Not Given Morphine Sulfate (Morphine) 2 mg IVPUSH Q2H PRN PRN Reason: Pain (severe 7-10) Ondansetron HCl (Zofran Odt) 4 mg PO Q6H PRN PRN Reason: Nausea able to take PO Ondansetron HCl (Zofran) 4 mg IV Q4H PRN PRN Reason: Nausea/Vomiting Oxycodone HCl (Oxycodone) 5 mg PO Q4H PRN PRN Reason: Pain (moderate 4-6) Pantoprazole Sodium (Protonix Iv) 40 mg IV DAILY [facility] Last Admin: 04/30/17 09:21 Dose: 40 mg Zolpidem Tartrate (Ambien) 5 mg PO BEDTIME [facility] Last Admin: 04/29/17 23:29 Dose: 5 mg Discontinued Medications Bisacodyl (Dulcolax) 10 mg PO ONETIME ONE Stop: 04/29/17 21:47 Last Admin: 04/29/17 23:29 Dose: 10 mg Fentanyl (Sublimaze) Confirm Administered Dose 100 mcg .ROUTE .STK-MED ONE Stop: 04/30/17 09:41 Sodium Chloride (Normal Saline) 1,000 mls @ 1,000 mls/hr IV .BOLUS [facility] Last Admin: 04/29/17 18:46 Dose: 1,000 mls/hr Sodium Chloride (Normal Saline) 1,000 mls @ 125 mls/hr IV ASDIRECTED [facility] Last Admin: 04/30/17 05:33 Dose: 125 mls/hr Insulin Aspart (Novolog) 10 unit SUBCUT NOW STA Stop: 04/29/17 19:51 Last Admin: 04/29/17 20:19 Dose: 10 units Insulin Detemir (Levemir) 50 unit SUBCUT DAILY [facility] Last Admin: 04/29/17 23:29 Dose: 50 units Midazolam HCl (Versed 1 Mg/Ml) Confirm Administered Dose 2 mg .ROUTE .STK-MED ONE Stop: 04/30/17 09:41 Pantoprazole Sodium (Protonix Iv) 40 mg IVPUSH ONETIME ONE Stop: 04/29/17 18:13 Last Admin: 04/29/17 18:45 Dose: 40 mg Polyethylene Glycol (Miralax) 238 gm PO ONETIME ONE Stop: 04/29/17 21:46 Last Admin: 04/29/17 23:21 Dose: 238 gm Potassium Chloride (Klor-Con M20) 40 meq PO ONETIME ONE Stop: 04/30/17 12:31 Last Admin: 04/30/17 12:21 Dose: 40 meq Propofol (Diprivan 20 Ml) Confirm Administered Dose 200 mg .ROUTE .STK-MED ONE Stop: 04/30/17 09:41 Sodium Chloride (Saline Flush) 10 ml FLUSH ASDIRECTED PRN PRN Reason: Keep Vein Open Last Admin: 04/29/17 18:46 Dose: 10 ml Sodium Chloride (Saline Flush) 10 ml FLUSH ASDIRECTED PRN PRN Reason: Keep Vein Open Last Admin: 04/29/17 19:21 Dose: 10 ml *Q Meaningful Use (DIS) - VTE *Q VTE Criteria *Q: - Stroke *Q Stroke Criteria *Q: - AMI *Q AMI Criteria *Q:
--- NOTE | 2017-05-01 07:35 | OR ---
DATE OF PROCEDURE: 04/30/2017 PREOPERATIVE DIAGNOSES: 1. Blood in stool. 2. History of diverticulosis. POSTOPERATIVE DIAGNOSES: 1. Blood in stool, etiology unknown. 2. Small transverse colon polyp. 3. [place]-diverticulosis. PROCEDURE PERFORMED: Colonoscopy to the cecum with biopsy resection of small transverse colon polyp. SURGEON: Deon Xiong MD. ANESTHESIA: IV anesthesia with monitored anesthesia care. INDICATIONS: This 56-year-old white male was coming back from [place] yesterday , when he passed blood per rectum and apparently this was quite a lot, causing him to come to the emergency room. He was admitted. His hemoglobin has fallen over the evening, down to 9.3 this morning. He says the bleeding appears to have stopped. A request was made for a colonoscopy. He underwent a colonoscopy prep without problems with no further blood. He says the last colonoscopic exam was done in [place] at [place] about five years ago. I counseled him for a colonoscopy with possible biopsy and/or polypectomy, including risks and alternatives, and he gave his informed consent to proceed. DESCRIPTION OF PROCEDURE: The patient was placed in the left lateral decubitus position. IV anesthesia was administered by the Anesthesia Service. Time-out was held. A rectal exam was performed, which was unremarkable. The flexible video Olympus colonoscope was introduced through his anus, up his rectum, and out his colon all the way to the cecum. At no point did we see any new blood. We did see some old blood, which was just traces. We saw diverticula throughout the entire colon. There was no obvious bleeding from any of them. It appeared though that there was no blood in the transverse colon or right colon, but the traces of old blood were seen in the left and sigmoid colon. Once the cecum was reached, the scope was slowly withdrawn, examining the mucosa throughout. In the transverse colon, we saw a small polyp, which was removed with a couple bites of the biopsy forceps. The scope was withdrawn further with no other new lesions noted. At no point did we see any fresh blood. The scope was retroflexed in the rectum with the distal rectum appearing unremarkable. The scope was straightened and removed. He tolerated the procedure well. Deon Xiong MD /[id number] JOHN PAUL
== END 2017-04-30 15:44 | disposition home or self-care (01) | DRG 378 ==
LOC: JP.ED 17:46 → JP.MS 20:54
PROVIDERS: ADMIT Hospitalist; ATTEND Internal Medicine
PROC: 0DBL8ZX Excision of Transverse Colon, Via Natural or Artificial Opening Endoscopic, Diagnostic (ICD-10-PCS; principal; 2017-04-30)
DX: K57.31 Diverticulosis of large intestine without perforation or abscess with bleeding (principal); D62 Acute posthemorrhagic anemia; D12.3 Benign neoplasm of transverse colon; I10 Essential (primary) hypertension; E11.9 Type 2 diabetes mellitus without complications; Z79.4 Long term (current) use of insulin; F41.9 Anxiety disorder, unspecified; Z85.46 Personal history of malignant neoplasm of prostate; Z90.79 Acquired absence of other genital organ(s); E78.00 Pure hypercholesterolemia, unspecified; M19.90 Unspecified osteoarthritis, unspecified site; J45.909 Unspecified asthma, uncomplicated; Z79.82 Long term (current) use of aspirin; Z88.8 Allergy status to other drugs, medicaments and biological substances
CPT/HCPCS: 36415; 80048; 80053; 82962; 83605; 85018; 85025; 85610; 86850; 86900; 86901; 86920; 86922; 88305; 93005; 96361; 96374; 96375; 99285-25; A9270-GY; C9113; J2250; J2704; J3010; J7040; J7050